=== PATIENT | male | born 1945 | race African-American/Black ===

== ENCOUNTER 2017-11-02 12:10 | Outpatient (CLI) | payer MEDICARE ==
[~2017-11-02 12:10] MED LIST: AMLO5TAB4 PO; HYDR12.5 PO; LISI-600 PO; METO-539 PO; OXAP600T PO; SOLI10TA2 PO
== END 2017-11-02 23:59 | disposition home or self-care (01) ==
LOC: CARD DIAG 12:10
PROVIDERS: ATTEND Internal Medicine Cardiovascular Disease
DX: Z01.818 Encounter for other preprocedural examination (principal); I07.1 Rheumatic tricuspid insufficiency; J90 Pleural effusion, not elsewhere classified; I34.0 Nonrheumatic mitral (valve) insufficiency; I37.1 Nonrheumatic pulmonary valve insufficiency; I10 Essential (primary) hypertension; Z96.651 Presence of right artificial knee joint; Z79.899 Other long term (current) drug therapy
CPT/HCPCS: 93306

== ENCOUNTER 2017-12-19 05:41 | Inpatient (IN) | payer MEDICARE ==
[2017-12-11 14:17] LABS: BASOPHILS % (AUTO) 0.6 % (0-1); EOSINOPHILS # (AUTO) 0.2 X10'3 (0-0.9); EOSINOPHILS % (AUTO) 3.9 % (0-6); LYMPHOCYTES # (AUTO) 1.7 X10'3 (1.1-4.8); LYMPHOCYTES % (AUTO) 28.6 % (21-51); MEAN CORPUSCULAR HEMOGLOBIN 31.8 PG (27.0-31.0); MEAN CORPUSCULAR HGB CONC 34.1 % (33.0-36.5); MEAN CORPUSCULAR VOLUME 93.4 FL (78-98); MEAN PLATELET VOLUME 7.9 FL (7.4-10.4); MONOCYTES # (AUTO) 0.8 X10'3 (0-0.9); MONOCYTES % (AUTO) 14.1 % (2-12); NEUTROPHILS # (AUTO) 3.1 X10'3 (1.8-7.7); NEUTROPHILS % (AUTO) 52.8 % (42-75); PRE OP HEMATOCRIT 41.8 % (42.0-52.0); PRE OP HEMOGLOBIN 14.2 g/dL (14.0-17.9); PRE OP PLATELET COUNT 238 X10'3 (140-440); RED BLOOD COUNT 4.48 X10'6 (4.70-6.10); RED CELL DISTRIBUTION WIDTH 14.1 % (11.5-14.5)
[2017-12-11 14:31] LABS: ALBUMIN 3.5 G/DL (3.4-5.0); ALKALINE PHOSPHATASE 78 IU/L (46-116); BLOOD UREA NITROGEN 13 MG/DL (7-18); BUN/CREATININE RATIO 14.4 (5.4-32.0); CALCIUM 8.3 MG/DL (8.5-10.1); CHLORIDE 105 MMOL/L (99-107); PRE OP ALT 30 U/L (30-65); PRE OP ANION GAP 8 (8-16); PRE OP AST 23 U/L (10-37); PRE OP BILIRUB, TOTAL 0.5 MG/DL (0.0-1.0); PRE OP GLUCOSE 104 MG/DL (70-104); PRE OP POTASSIUM 3.5 MMOL/L (3.4-5.1); PRE OP SODIUM 141 MMOL/L (135-145); TOTAL CARBON DIOXIDE 28.3 MMOL/L (24-32); TOTAL PROTEIN 6.9 G/DL (6.4-8.2); eGFR > 90 ML/MIN
[~2017-12-19] VITALS: Ht 172.7 cm; Wt 84.9 kg
[2017-12-19] VITALS (15 sets, daily range): BP systolic 92–141; BP diastolic 44–79
[~2017-12-19 05:41] MED LIST changes: +ASPI-1265 PO; +CALC-1197 PO; +FISH12002 PO; -HYDR12.5 PO; +MULT1CAP44 PO; +OXYB10TA PO; -SOLI10TA2 PO; +TAMS0.4C32 PO; +acetaminophen 325mg tablet PO ONE; +cefazolin/dext.iso 2gm/100 ML IV ONE; +famotidine 20mg tablet PO ONE; +gabapentin 300mg capsule PO ONE; +metoclopramide 5 mg/ml inj IV ONE; +oxyCODONE SR 10mg (sust. release) tab PO ONE; +ringers solution, lacted 1,000 ML IV SCH; +tranexamic acid inj. 1,000 MG in normal saline 100ml IV soln 90 ML IV ONE; +vancomycin inj 1,500 MG in normal saline 300ml IV soln IV ONE
[2017-12-19] MEDS ORDERED: vancomycin 1,000mg inj ONE (06:35)
[2017-12-19] MEDS ORDERED: ceFAZolin 1000mg inj ONE ×2 (06:37→06:39)
[2017-12-19] MEDS ORDERED: cloNIDine hcl/PF 100mcg/ml inj ONE (07:12)
[2017-12-19] MEDS ORDERED: tetracaine 1% (10mg/ml) pres. free inj. ONE (07:12)
[2017-12-19] MEDS ORDERED: fentaNYL/PF 50MCG/1 ML 2ML syringe ONE ×2 (07:16→09:42)
[2017-12-19] MEDS ORDERED: MIDAZolam 5mg/5ml vial ONE (07:16)
[2017-12-19] MEDS ORDERED: morphine /PF 1mg/ml 10ml inj. ONE (07:16)
[2017-12-19] MEDS ORDERED: propofol inj 20 ML IV ONE ×3 (07:23→10:14)
[2017-12-19] MEDS ORDERED: LIDOcaine 1%/PF 5ML 10 MG/ML VIAL ONE (07:23)
[2017-12-19] MEDS ORDERED: Thrombin (Bovine) 5,000 unit vial TP ONE (08:13)
[2017-12-19] MEDS ORDERED: calcium chloride 100 MG/1 ML inj IV ONE (08:15)
[2017-12-19] MEDS ORDERED: ROPIVAcaine inj 200 MG, ketorolac trometh inj. 30 MG, epiNEPHrine inj 0.6 MG, morphine ... IU ONE ×5 (08:30)
[2017-12-19] MEDS ORDERED: glycopyrrolate 0.2mg/ml inj ONE (08:51)
[2017-12-19] MEDS ORDERED: ROPIVAcaine 0.5% (5mg/ml) 30ml vial ONE (08:54)
[2017-12-19] MEDS ORDERED: dexamethasone sod phosphate 4mg/ml inj. ONE (08:55)
[2017-12-19] MEDS ORDERED: normal saline 1000ml 1,000 ML IV ONE (09:59)
[2017-12-19] MEDS ORDERED: morphine 4 MG/ML inj SYRINge IV PRN (10:00)
[2017-12-19] MEDS ORDERED: diphenhydrAMINE 50 mg/ml inj IV PRN (10:00)
[2017-12-19] MEDS ORDERED: ondansetron/PF 4mg/2ml inj IV PRN ×3 (10:00→10:30)
[2017-12-19] MEDS ORDERED: oxyCODONE IR 5mg (immed. release) tablet PO PRN (10:30)
[2017-12-19] MEDS ORDERED: acetaminophen 325mg tablet PO PRN (10:30)
[2017-12-19] MEDS ORDERED: diphenhydrAMINE 25mg capsule PO PRN ×2 (10:30)
[2017-12-19] MEDS ORDERED: bisacodyl 10mg suppository rectal RC PRN (10:30)
[2017-12-19] MEDS ORDERED: HYDROmorphone 1 mg/ml syringe IV PRN ×2 (10:30)
[2017-12-19] MEDS ORDERED: magnesium hydroxide 30ml (MOM) UD suspension PO PRN (10:30)
[2017-12-19] MEDS: potassium cl 20mEq in 1/2 NS 1,000 ML IV SCH ×2 (11:35→23:27)
[2017-12-19] MEDS ORDERED: tranexamic acid inj. 850 MG in normal saline 100ml IV soln 100 ML IV ONE (14:00)
[2017-12-19] MEDS: gabapentin 300mg capsule PO SCH ×2 (14:26→20:31)
[2017-12-19] MEDS: acetaminophen 325mg tablet PO SCH ×2 (14:26→20:31)
[2017-12-19] MEDS: ceFAZolin 1GM/D5W- ADD-VANTAGE 50 ML IV SCH ×2 (16:16→23:28)
[2017-12-19] MEDS: oxyCODONE IR 5mg (immed. release) tablet PO PRN (16:33)
[2017-12-19] MEDS ORDERED: vancomycin/NS 1 GM ADD-VANTAGE 250 ML IV SCH (20:00)
[2017-12-19] MEDS: sennosides 8.6mg tablet PO SCH (20:31)
[2017-12-20] MEDS: acetaminophen 325mg tablet PO SCH ×4 (02:19→20:58)
[2017-12-20] MEDS: potassium cl 20mEq in 1/2 NS 1,000 ML IV SCH ×3 (02:26→16:00)
[2017-12-20 04:00] VITALS: BP 121/70
[2017-12-20] MEDS: oxyCODONE IR 5mg (immed. release) tablet PO PRN ×2 (05:42→11:14)
[2017-12-20 05:53] LABS: ANION GAP 7 (8-16); CHLORIDE 105 MMOL/L (99-107); POTASSIUM 3.9 MMOL/L (3.5-5.1); SODIUM 138 MMOL/L (135-145); TOTAL CARBON DIOXIDE 25.9 MMOL/L (24-32)
[2017-12-20 06:00] VITALS: BP 149/74
[2017-12-20 06:44] LABS: HEMATOCRIT 31.6 % (42.0-52.0); HEMOGLOBIN 10.9 g/dl (14.0-17.9); MEAN CORPUSCULAR HEMOGLOBIN 32.7 PG (27.0-31.0); MEAN CORPUSCULAR VOLUME 94.2 FL (78-98); RED BLOOD COUNT 3.35 X10'6 (4.70-6.10); WHITE BLOOD COUNT 10.1 X10'3 (4.5-11.0)
[2017-12-20 06:45] LABS: BASOPHILS % (AUTO) 0.1 % (0-1); EOSINOPHILS % (AUTO) 0.4 % (0-6); LYMPHOCYTES # (AUTO) 1.3 X10'3 (1.1-4.8); LYMPHOCYTES % (AUTO) 13.2 % (21-51); MEAN CORPUSCULAR HGB CONC 34.7 % (33.0-36.5); MEAN PLATELET VOLUME 8.7 FL (7.4-10.4); MONOCYTES % (AUTO) 10.3 % (2-12); NEUTROPHILS # (AUTO) 7.8 X10'3 (1.8-7.7); PLATELET COUNT 193 X10'3 (140-440); RED CELL DISTRIBUTION WIDTH 13.1 % (11.5-14.5)
[2017-12-20] MEDS: amLODIPine 5mg tablet PO SCH (08:25)
[2017-12-20] MEDS: lisinopril 20mg tablet PO SCH (08:25)
[2017-12-20] MEDS: gabapentin 300mg capsule PO SCH ×3 (08:26→20:58)
[2017-12-20] MEDS: oxybutynin 5mg tablet PO SCH (08:26)
[2017-12-20] MEDS: metoprolol succinate 25mg (24-HOUR) SR. Tablet PO SCH (08:26)
[2017-12-20] MEDS: tamsulosin 0.4mg capsule PO SCH (08:26)
[2017-12-20] MEDS: enoxaparin 40mg/0.4ml syringe SQ SCH (08:27)
[2017-12-20 10:00] VITALS: BP 134/65
[2017-12-20 14:00] VITALS: BP 114/54
[2017-12-20 18:00] VITALS: BP 137/68
[2017-12-20] MEDS ORDERED: naloxone 0.4 mg/ml inj IV ONE (19:20)
[2017-12-20] MEDS: sennosides 8.6mg tablet PO SCH (20:58)
[2017-12-20] MEDS: celeCOXIB 100mg capsule PO SCH (20:58)
[2017-12-20 22:00] VITALS: BP 149/70
[2017-12-21] MEDS: acetaminophen 325mg tablet PO SCH ×2 (01:25→08:05)
[2017-12-21] MEDS: potassium cl 20mEq in 1/2 NS 1,000 ML IV SCH (02:26)
[2017-12-21] MEDS: oxyCODONE IR 5mg (immed. release) tablet PO PRN ×2 (05:42→10:32)
[2017-12-21 06:00] VITALS: BP 129/84
[2017-12-21] MEDS: tamsulosin 0.4mg capsule PO SCH (08:04)
[2017-12-21] MEDS: oxybutynin 5mg tablet PO SCH (08:04)
[2017-12-21] MEDS: celeCOXIB 100mg capsule PO SCH (08:04)
[2017-12-21] MEDS: gabapentin 300mg capsule PO SCH (08:04)
[2017-12-21 08:06] LABS: BASOPHILS % (AUTO) 0.4 % (0-1); EOSINOPHILS # (AUTO) 0.3 X10'3 (0-0.9); EOSINOPHILS % (AUTO) 3.9 % (0-6); HEMOGLOBIN 10.7 g/dl (14.0-17.9); LYMPHOCYTES % (AUTO) 12.1 % (21-51); MEAN CORPUSCULAR HEMOGLOBIN 32.7 PG (27.0-31.0); MEAN CORPUSCULAR HGB CONC 34.6 % (33.0-36.5); MEAN CORPUSCULAR VOLUME 94.5 FL (78-98); MEAN PLATELET VOLUME 8.6 FL (7.4-10.4); MONOCYTES # (AUTO) 1.3 X10'3 (0-0.9); MONOCYTES % (AUTO) 14.5 % (2-12); NEUTROPHILS % (AUTO) 69.1 % (42-75); PLATELET COUNT 189 X10'3 (140-440); RED BLOOD COUNT 3.28 X10'6 (4.70-6.10); WHITE BLOOD COUNT 8.6 X10'3 (4.5-11.0)
[2017-12-21] MEDS: enoxaparin 40mg/0.4ml syringe SQ SCH (08:06)
[2017-12-21] MEDS: lisinopril 20mg tablet PO SCH (09:52)
[2017-12-21] MEDS: amLODIPine 5mg tablet PO SCH (09:53)
[2017-12-21] MEDS: metoprolol succinate 25mg (24-HOUR) SR. Tablet PO SCH (09:53)
[2017-12-21 10:00] VITALS: BP 151/85
[2017-12-21] MEDS ORDERED: acetaminophen 325mg tablet PO PRN (10:30)
== END 2017-12-21 12:24 | disposition home or self-care (01) | DRG 470 ==
LOC: PAS IN 05:41 → EDSTATUS 07:30 → ORTHO 4S 11:40
PROVIDERS: ADMIT Orthopaedic Surgery; ATTEND Orthopaedic Surgery
PROC: 3E0T3BZ Introduction of Anesthetic Agent into Peripheral Nerves and Plexi, Percutaneous Approach (ICD-10-PCS; 2017-12-19)
PROC: 8E0Y0CZ Robotic Assisted Procedure of Lower Extremity, Open Approach (ICD-10-PCS; 2017-12-19)
PROC: 0SRD069 Replacement of Left Knee Joint with Oxidized Zirconium on Polyethylene Synthetic Substitute, Cemented, Open Approach (ICD-10-PCS; principal; 2017-12-19 07:31)
DX: M17.12 Unilateral primary osteoarthritis, left knee (principal); D62 Acute posthemorrhagic anemia; I10 Essential (primary) hypertension; N40.0 Benign prostatic hyperplasia without lower urinary tract symptoms; Z89.011 Acquired absence of right thumb
CPT/HCPCS: 36415; 80051; 80053; 85025; 87070; 97110; 97116; 97162; A6455; A7000; C1713; C1758; C1776; J0171; J0690; J0735; J1100; J1170; J1650; J1885; J2001; J2250; J2270; J2274; J2405; J2704; J2765; J2795; J3010; J3370; J3490; J7030; J7120

== ENCOUNTER → 2022-06-05 | Outpatient (CLI) | payer MEDICARE, BC ==
[~2022-06-05] MED LIST changes: -CALC-1197 PO; +CALC-1215 PO; -LISI-600 PO; +LISI20TA28 PO; -OXYB10TA PO; +OXYB10TA30 PO; -acetaminophen 325mg tablet PO ONE; -cefazolin/dext.iso 2gm/100 ML IV ONE; -famotidine 20mg tablet PO ONE; -gabapentin 300mg capsule PO ONE; -metoclopramide 5 mg/ml inj IV ONE; -oxyCODONE SR 10mg (sust. release) tab PO ONE; -ringers solution, lacted 1,000 ML IV SCH; -tranexamic acid inj. 1,000 MG in normal saline 100ml IV soln 90 ML IV ONE; -vancomycin inj 1,500 MG in normal saline 300ml IV soln IV ONE
== END | disposition home or self-care (01) ==
LOC: CARD DIAG 12:51
PROVIDERS: ATTEND Internal Medicine Cardiovascular Disease
DX: I08.3 Combined rheumatic disorders of mitral, aortic and tricuspid valves (principal)
CPT/HCPCS: 93306

== ENCOUNTER 2023-10-06 12:56 | Emergency (ER) | payer BC, MEDICARE ==
[~2023-10-06] VITALS: Ht 177.8 cm; Wt 81.8 kg
[2023-10-06 13:02] VITALS: BP 92/61; PULSE 66; RESP 16; O2SAT 99
[2023-10-06] MEDS ORDERED: iohexol 350MG/ML 100ml bottle IV ONE (13:06)
[2023-10-06] MEDS ORDERED: OLANZapine **IM** 10 mg inj. IM ONE (13:15)
[2023-10-06] MEDS ORDERED: normal saline 1000ML IV soln IVB ONE (13:15)
== END 2023-10-06 18:30 | disposition left against medical advice (07) ==
LOC: ER 12:56
DX: R55 Syncope and collapse (principal); R41.82 Altered mental status, unspecified; R45.1 Restlessness and agitation; I10 Essential (primary) hypertension; Z79.82 Long term (current) use of aspirin; Z79.899 Other long term (current) drug therapy; Z98.890 Other specified postprocedural states
CPT/HCPCS: 82948; 99282; Q9967

== ENCOUNTER 2024-12-18 12:24 | Outpatient (CLI) | payer MEDICARE, OTHER ==
[~2024-12-18 12:24] MED LIST changes: +AMLO10TA13 PO; -AMLO5TAB4 PO; -LISI20TA28 PO; +LISI40TA20 PO; -METO-539 PO; -OXAP600T PO
--- NOTE | 2024-12-18 13:35 | VASCULAR REPORT ---
[facility] Vascular Department [facility] [address] [place] [address] [email or web address] [email or web address] Health NIGEL MCCARTY Name : PÉREZ THOMPSON Date : 12/18/2024 TESTING Accession# : [id number] Birthdate : 1945 Sex : M Personal Security Specialist : Luis Manuel Mcguire RVT Age : 79Y [address] : [facility] F[facility] Preliminary Report The above named patient was referred for a NON-INVASIVE CEREBROVASCULAR EVALUATION. The evaluation includes grayscale imaging, color flow Doppler and spectral analysis of the bilateral carotid and vertebral arteries. Patient OUT-PATIENT L tatihnBilateral Indications Syncope/syncopal Risk Factors Hypertension: Doppler Spectral Velocity Analysis Right Left pCCA 97/18 cm/s pCCA 90/22 cm/s dCCA 80/17 cm/s dCCA 72/19 cm/s ECA 62/ cm/s ECA 57/ cm/s pICA 58/16 cm/s pICA 48/16 cm/s Kasey 80/24 cm/s Kasey 69/23 cm/s dICA 69/18 cm/s dICA 79/31 cm/s Vert. 43/17 cm/s Vert. 35/8 cm/s Subcl. 102/ cm/s Subcl. 70/ cm/s ICA/CCA 1.00 ICA/CCA 1.10 Real-Time B-Mode Imaging Area Findings Right Left CCA Plaque Composition Intimal thickening Intimal thickening BIF Plaque Composition Intimal thickening Intimal thickening Vertebral Antegrade Antegrade Subclavian Multiphasic Multiphasic Impression: No sonographic evidence of stenosis or occlusion of bilateral carotid arteries. All carotid arteries showed less than 50% stenosis bilaterally. Antegrade flow noted in bilateral vertebral arteries. Multiphasic flow noted in bilateral subclavian arteries.
== END 2024-12-18 23:59 | disposition home or self-care (01) ==
LOC: VAS 12:24
PROVIDERS: ATTEND Internal Medicine Cardiovascular Disease
DX: I65.23 Occlusion and stenosis of bilateral carotid arteries (principal); R55 Syncope and collapse; R42 Dizziness and giddiness
CPT/HCPCS: 93880